=== PATIENT | female | born 1980 | race Hispanic/Latino ===

== ENCOUNTER 2023-11-10 20:47 | Emergency (ER) | payer OTHER ==
[2023-11-10] MEDS ORDERED: Dexamethasone 10 MG/ML VIAL ONE (22:44)
[2023-11-10] MEDS ORDERED: Ketorolac Tromethamine 30 MG (1 mL) VIAL ONE (22:44)
== END 2023-11-10 23:04 | disposition home or self-care (01) ==
LOC: CSHERS 20:47
DX: J02.9 Acute pharyngitis, unspecified (principal); F17.210 Nicotine dependence, cigarettes, uncomplicated
CPT/HCPCS: 87081; 87430; 96372; 99283; J1100; J1885